=== PATIENT | female | born 1970 | race Caucasian/White ===

== ENCOUNTER 2021-09-13 08:16 | Inpatient (IN) | payer MEDICARE, MEDICAID, SELFPAY ==
[2021-09-13] VITALS (17 sets, daily range): BP systolic 104–131; BP diastolic 51–68; PULSE 2–110; RESP 11–23; TEMP 36.1–36.7; O2SAT 88–97; BMI 21.2
--- NOTE | ~2021-09-13 | MR_ITS ---
EXAMINATION: MR brain/brain stem wo/w con EXAM DATE: 09/15/2021 18:44 INDICATION: Trouble finding words, Hx CVA Aneurysms . TECHNIQUE: Magnetic resonance imaging (MRI) of the brain/brain stem obtained without contrast. Sagit ross T1, axial diffusion, gradient echo (T2*), T1, T2, FLAIR sequences obtained. Patient was then inj ected with 10 cc intravenous Multihance contrast. Axial and coronal postcontrast T1 weighted sequence s obtained. Correlation is made to head CT from 09/13/2021. FINDINGS: Evidence of small old hemorrhagic infarction in the left frontal lobe white matter extendin g to the external capsule. Mild microangiopathy. There are no areas of restricted diffusion to sugges t acute infarction. There is no acute hemorrhage seen on the T2*, a hemosiderin sensitive sequence. No intraparenchymal brain mass. The ventricles are normal in size. There are no extra-axial collect ions. Flow voids are seen in the cerebral arteries on the T2-weighted sequences consistent with thei r expected patency. The orbits are unremarkable. Soft tissue is unremarkable. There are no areas of abnormal enhancement on the postcontrast images. IMPRESSION: 1. No acute intracranial findings. 2. Small old left frontal lobe white matter/external capsular hemorrhagic lacunar infarction. Reviewed, dictated and finalized at location G. HAND CRAB BOAT IMPRESSION: 1. No acute intracranial findings. 2. Small old left frontal lobe white matter/external capsular hemorrhagic lacu valeria infarction.
--- NOTE | ~2021-09-13 | US_ITS ---
EXAMINATION: US abdomen limited EXAM DATE: 09/13/2021 16:57 INDICATION: Epigastric pain. TECHNIQUE: Multiple grayscale and Doppler images of the abdomen right upper quadrant were obtained (panda martins a technologist who performed the scan) and subsequently reviewed. There is no prior study for dipak alfonso. FINDINGS: The pancreatic head and body are normal in appearance. The pancreatic tail is not visualized. Mildl y nodular liver contour, possible cirrhosis. Some echogenic portal triads with dirty shadowing, proba esteban the pneumobilia seen on CT. There are no focal liver lesions identified. There is pulsatile and bidirectional portal venous flow, consistent with portal hypertension. No right-sided hydronephrosis . Common bile duct measures 8 mm, which is normal for postcholecystectomy status. The gallbladder vince a is unremarkable. IMPRESSION: 1. Cirrhosis and portal hypertension. 2. Pneumobilia, common finding for postcholecystectomy status. Reviewed, dictated and finalized at location G. S SECRETARY
--- NOTE | ~2021-09-13 | XR_ITS ---
EXAMINATION: XR chest 1V portable DATE: 09/13/2021 08:51 INDICATION: Shortness of breath. TECHNIQUE: A single frontal view of the chest was obtained. COMPARISON: None. FINDINGS: There is mild elevation of left hemidiaphragm. There is mild atelectasis at left lung base. No pleural effusion or pneumothorax. The heart size is normal. IMPRESSION: 1. Mild elevation of left hemidiaphragm with mild atelectasis at left lung base. Reviewed, dictated and finalized at location E. ER HAND IMPRESSION: 1. Mild elevation of left hemidiaphragm with mild atelectasis at left lung base .
--- NOTE | ~2021-09-13 | CT_ITS ---
EXAMINATION: CT brain wo [facility] EXAM DATE: 09/13/2021 17:29 INDICATION: slurred speech TECHNIQUE: Spiral CT of the head was performed without contrast. Axial, coronal and sagittal images were reviewed. The dose-length product (DLP) for this examination was 605.33 mGy-cm. The exposure w as tailored according to patient size, and iterative reconstruction (ASIR) was used as additional dos e reduction technique. There is no prior study for comparison. FINDINGS: There is small left centrum semiovale old infarction. There is no acute intraparenchymal he morrhage. No evidence of intraparenchymal brain mass lesion. No evidence of acute infarction. Ther e is no mass effect or midline shift. The ventricles are normal in size. There are no extra-axial c ollections. There are no acute calvarial fractures. The orbits are unremarkable. Soft tissue is unr emarkable. The visualized sinuses and mastoid air cells are well aerated. IMPRESSION: 1. No acute intracranial findings. 2. Small old left frontal lobe white matter infarction. Reviewed, dictated and finalized at location G. ION JOURNALIST
--- NOTE | ~2021-09-13 | XR_ITS ---
XR foot RT 2V DATE: 09/13/2021 13:01 INDICATION: Generalized foot pain TECHNIQUE: AP and lateral views COMPARISON: None FINDINGS: There is diffuse osteopenia. 2 fixation devices are noted at the neck and head of the first metatarsal bone. There is a transverse fixation device through the proximal shaft of the proximal phalanx of the first digit. There is surgical fusion of the proximal interphalangeal joints of the second through fourth digits. There is chronic flattening and deformity of the second metatarsal head and chronic irregularity at t he second metatarsophalangeal joint. No recent fracture or dislocation, periosteal reaction or bone destruction is evident. IMPRESSION: Osteopenia Postoperative changes Chronic deformity of the second metatarsal head and second metatarsophalangeal joint Reviewed, dictated and finalized at location B. COMMUNICATIONS SWITCH TECHNICIAN
--- NOTE | ~2021-09-13 | US_ITS ---
EXAMINATION: US venous doppler [facility] DATE: 09/13/2021 15:48 INDICATION: Lower limb swelling TECHNIQUE: Grayscale ultrasound images without and with compression and Doppler ultrasound images of the bilateral lower extremity veins were obtained. COMPARISON: None. FINDINGS: The visualized portions of right common femoral vein, profunda (deep) femoral vein, femoral vein, pop liteal vein, posterior tibial veins, peroneal veins, gastrocnemius vein and greater saphenous vein ou tflow are patent. The visualized portions of left common femoral vein, profunda femoral vein, femoral vein, popliteal v ein, posterior tibial veins, peroneal veins, gastrocnemius vein and greater saphenous vein outflow ar e patent. IMPRESSION: 1. No deep venous thrombosis in either lower limb. Reviewed, dictated and finalized at location A. TH AND SAFETY TECHNICIAN
--- NOTE | ~2021-09-13 | CT_ITS ---
EXAMINATION: CTA chest PE protocol DATE: 09/13/2021 10:02 INDICATION: Chest pain, shortness of breath. Positive d-dimer. TECHNIQUE: Computed tomography angiography (CTA) of the chest was performed with 100 mL Omnipaque-350 intravenous contrast timed to evaluate the pulmonary arteries. Coronal maximum intensity projection 3D-reconstructions were created by the technologist. Automated exposure control and iterative reconst ruction technique were employed. Exam dose: 157.70 mGy-cm total exam DLP. COMPARISON: 09/13/2021 portable AP chest FINDINGS: There is diagnostic contrast enhancement of the pulmonary arteries and no evidence of pulmo nary embolism. There is bibasilar atelectasis, left greater than right, with mild elevation of the left leaf of the diaphragm. Normal heart size. No pericardial or pleural effusion. No hilar or mediastinal mass lesion or lymphadenopathy. No thoracic aortic aneurysm or dissection. Moderate emphysematous changes of the lungs with scattered bullae. Prominent degenerative disc disease in the lower cervical spine. There is mild degenerative spurring of the thoracic spine. No suspicious osteolytic or osteoblastic lesions. Pneumobilia is noted, likely secondary to cholecystectomy. No adrenal mass lesions are noted. Small sliding hiatal hernia. IMPRESSION: No evidence of pulmonary embolism Mild bibasilar atelectasis, left greater than right; mild elevation of left diaphragm Emphysema Reviewed, dictated and finalized at Location A. Reviewed, dictated and finalized at location B. STED LIVING HOUSEKEEPER IMPRESSION: No evidence of pulmonary embolism Mild bibasilar atelectasis, left greater than right; mild elevation of left jackie phragm Emphysema
--- NOTE | 2021-09-13 08:27 | ECG_ITS ---
Measurements Intervals [place] Rate: 82 P: 37 NH: 137 QRS: -54 QRSD: 108 T: 76 QT: 371 QTc: 435 Interpretive Statements SINUS RHYTHM LEFT ANTERIOR FASCICULAR BLOCK VOLTAGE CRITERIA FOR LVH BASELINE ARTIFACT- II, III, AVF ABNORMAL ECG Electronically Signed On 09-13-2021 10:37:51 OCCUPATIONAL THERAPY PROGRAM DIRECTOR by Pranav Farnsworth D.O.
[2021-09-13 08:55] LABS: Basophils Percent Auto 0.2 % (0.2-1.2); Eosinophils Percent Auto 0.4 % (0-4.4); Hematocrit 36.2 % (37.0-47.0); Hemoglobin 12.4 g/dL (12.0-15.0); Immature Granulocyte Absolute 0.03 K/mm3 (0.00-0.031); Immature Granulocyte Percent A 0.3 % (0-0.5); Lymphocytes Absolute Auto 1.22 K/mm3 (0.9-3.2); Lymphocytes Percent Auto 11.5 % (18.3-44.2); Mean Corpuscular HGB Conc 34.3 g/dl (32-36); Mean Corpuscular Hemoglobin 32.9 pg (26-34); Mean Platelet Volume 10.2 fl (7.4-10.4); Monocytes Percent Auto 9.1 % (2.6-8.5); Neutrophils Absolute Auto 8.3 K/mm3 (1.3-6.7); Neutrophils Percent Auto 78.5 % (45.5-73.1); Platelet Count Result 134 k/mm3 (150-375); Red Blood Count 3.77 M/mm3 (4.2-5.4); Red Cell Distribution Width 13.6 % (11.5-14.5); White Blood Count 10.6 K/mm3 (4.5-10.0)
--- NOTE | 2021-09-13 08:59 | ED.GENADULT ---
HPI - General Adult General Chief complaint: Shortness of Breath/Dyspnea Stated complaint: SOB Time Seen by Provider: 09/13/21 08:30 Source: patient History of Present Illness HPI narrative: Patient is a 50 y/o female complaining of chest pain and SOB since yesterday. She describes her chest pain as pressure and rates it as 2/10. Her chest pain is mostly located on right lower chest area with no radiation. She has a cough with some dark phlegm. She has a history of asthma. She also had a recent stroke and she is supposed to have aneurysm surgery at [place]. Related Data Home Medications Medication Instructions Recorded Confirmed lactulose 10 g PO TID 09/13/21 09/13/21 Allergies Allergy/AdvReac Type Severity Reaction Status Date / Time propoxyphene Allergy Unknown Verified 09/13/21 10:32 [From Darvocet-N] baclofen AdvReac Muscle Verified 09/13/21 10:32 Spasms cyclobenzaprine AdvReac Muscle Verified 09/13/21 10:32 Spasms orphenadrine [From Norflex] AdvReac Muscle Verified 09/13/21 10:32 Spasms Review of Systems Constitutional: Constitutional: Denies chills, Denies fever(s), Denies headache(s) and Denies weakness Eyes: Eyes: Denies blurry vision ENT: Denies headache(s) and Denies neck pain Cardiovascular: Cardiovascular: Reports chest pain and Reports dyspnea Respiratory: Respiratory: Reports cough and Reports dyspnea Gastrointestinal: Gastrointestinal: Denies abdominal pain, Denies diarrhea, Denies nausea and Denies vomiting Genitourinary: Genitourinary: Denies hematuria and Denies dysuria Musculoskeletal: Musculoskeletal: Denies back pain and Denies neck pain Neurologic: Denies headache(s) and Denies weakness [facility] Past Medical History Medical History Cerebral aneurysm scheduled for surgery Cirrhosis COPD (chronic obstructive pulmonary disease) CVA (cerebral vascular accident) Tobacco abuse Surgical History Surgical History H/O section H/O: hysterectomy S/P ORIF (open reduction internal fixation) fracture right foot times two Family History Family History Mother History of brain shunt Cerebrovascular accident Father Acute myocardial infarction Social History Social History (Updated 09/13/21 @ 15:08 by Rossy Christianson NP) Social History: She has 2 children and is . She is disabled and her brother lives with here. She continues to smoke 1ppd. She has a significant other. She does not have a durable power malted milk mixer for healthcare. She denies any alcohol marijuana or illicit drug Code status full code Smoking packs per day: 0.75 Smoking cigarettes per day: 15.0 Years smoked: 33 Smoking pack-years: 24.75 Smoking status: Current every day smoker Tobacco type: cigarettes Alcohol intake: unknown Substance use: unknown Substance use type: unknown Spiritual care concerns: No Exam Const: General: no acute distress and well developed Orientation/consciousness: oriented to person, oriented to place, oriented to time and patient oriented x3 HENMT: Head: normocephalic Ears: external ears normal General nose exam: Normal external nose present Eyes: General: appearance normal, both eyes and all related structures Conjunctivae: conjunctivae normal Neck: Neck: normal visual inspection and full ROM Chest: Chest palpation & inspection: normal inspection of the chest and no tenderness Resp: Effort & Inspection: normal respiratory effort Auscultation: clear to auscultation bilaterally Cardio: Rate: regular rate Rhythm: regular rhythm GI: GI Palp: No abdominal tenderness and Yes Soft to palpation Skin: General skin exam: normal color and turgor normal Neuro: General: oriented to person, oriented to place, oriented to time and patient oriented x3 Cognit
[2021-09-13 09:04] LABS: Alanine Aminotransferase 42 U/L (4-35); Alkaline Phosphatase 95 U/L (38-126); Anion Gap 5 mmol/L (8-16); Aspartate Amino Transferase 66 U/L (14-36); Bilirubin,Total 1.5 mg/dL (0.2-1.3); Blood Urea Nitrogen 21 mg/dL (7-17); Calcium 8.9 mg/dL (8.4-10.2); Carbon Dioxide 27 mmol/L (22-30); Chloride 99 mmol/L (98-107); Estimated CRCL calculation 55 ml/min; Estimated Glomerular Filt Rate > 60; Glucose 111 mg/dL (65-110); Potassium 4.7 mmol/L (3.4-5.0); Sodium 131 mmol/L (137-145)
[2021-09-13 09:07] LABS: INR 1.2; Prothrombin Time 15.3 Seconds (11.1-14.7)
[2021-09-13 09:08] LABS: Partial Thromboplastin Time 34.8 SECONDS (22.3-36.8)
[2021-09-13 09:10] LABS: D Dimer 0.76 ug/mL (<0.48)
[2021-09-13 09:54] LABS: SARS-CoV-2 RNA PCR Negative
[2021-09-13 09:56] LABS: Troponin I 0.019 ng/mL (0.000-0.034)
[2021-09-13] MEDS: ALBUTEROL SULFATE NEB 2.5 MG/0.5 ML INH INHALATION ×2 (10:30→20:08)
[2021-09-13] MEDS: IPRATROPIUM BR 0.02% INH SOLN 0.5 MG/2.5 ML VIAL INHALATION ×2 (10:30→20:08)
--- NOTE | 2021-09-13 10:53 | PC.NURSE ---
Patient states her right foot hurts. nurse inquires if patient would like something for pain. Patient agrees to pain. Provider consulted. Patient states she is not interested in tylenol for pain control.
[2021-09-13] MEDS: methylPREDNISolone SOD SUCC 125 MG VIAL IV PUSH (11:03)
[2021-09-13 12:46] LABS: Troponin I 0.015 ng/mL (0.000-0.034)
--- NOTE | 2021-09-13 12:54 | PM.IMHP ---
H&P: HPI History of Present Illness Date/Time: 09/13/21 12:54 this is a 50-year-old female patient who came in with multiple complaints. She had been complaining of chest pain and shortness of breath since yesterday. She stated that 1 of her doctors did diagnose her with COPD but she has never had a pulmonary function test. The patient has also had CVA in the past according to her boyfriend Yoel. The patient was refusing to come to the hospital initially however her significant other made her come via ambulance. The patient described her chest pain as pressure that she rated 2/10. The patient is very anxious and is having slurred speech. However the significant other stated that her speech is typically slurred since she has had a CVA. The patient goes on to tell me that she has non alcoholic cirrhosis. She states that she takes lactulose daily and sees a specialist at [place]. The patient still continues to smoke a pack a cigarettes a day. She also stated that she has 2 aneurysm in in her brain and that she is scheduled for surgery next week in [place]. Chest x-ray was read as mild elevation of left hemidiaphragm with mild atelectasis the left lung base. CT of the chest was read as no evidence of pulmonary embolism. Mild bi basilar atelectasis left greater than right mild elevation of left diaphragm. Emphysema. The patient was also complaining of right foot pain and was wearing a walking boot on that foot. I x-rayed it and it was read as postoperative changes. Chronic deformity of the 2nd metatarsal head and 2nd metatarsal joint. The patient was given nebulizer treatments and Solu-Medrol. The patient was placed on observation status on the date of service 09/13/2021. Chief Complaint: Shortness of breath Review of Systems Review of Systems: All systems reviewed & are unremarkable except as noted in HPI and below Constitutional: Constitutional: Reports as per HPI and Reports no additional constitutional complaints Eyes: Eyes: Reports as per HPI and Reports no additional eye complaints ENT: Reports system reviewed and no additional complaints, except as documented and Reports Normal hearing present Cardiovascular: Cardiovascular: Reports no additional cardiovascular complaints Respiratory: Respiratory: Reports no additional respiratory complaints and Reports no additional respiratory complaints Gastrointestinal: Gastrointestinal: Reports as per HPI and Reports no additional gastrointestinal complaints Musculoskeletal: Musculoskeletal: Reports no additional musculoskeletal complaints Integumentary/Breasts: Skin/Breast: Reports system reviewed and no additional complaints, except as docu and Reports as per HPI Neurologic: Reports system reviewed and no additional complaints, except as documented, Reports as per HPI and Reports Normal hearing present Psychiatric: Psychiatric: Reports no additional psychiatric complaints and Reports as per HPI Endocrine: Endocrine: Reports no additional endocrine complaints Hematologic/Lymphatic: Hematologic/Lymphatic: Reports no additional hematologic/lymphatic complaints Allergic/Immunologic: Allergic/Immunologic: Reports no additional allergic/immunologic complaints [facility] Past Medical History Medical History (Updated 09/13/21 @ 17:55 by Rossy Christianson NP) Cerebral aneurysm scheduled for surgery Cirrhosis COPD (chronic obstructive pulmonary disease) CVA (cerebral vascular accident) Tobacco abuse Surgical History Surgical History (Updated 09/13/21 @ 17:54 by Rossy Christianson NP) H/O section H/O: hysterectomy Hx of cholecystectomy S/P ORIF (open reduction internal fixation) fracture right foot times two Family History Family History Mother History of brain shunt Cerebrovascular accident Father Acute myocardial infarction Social History Social History (Reviewed 09/13/21 @ 17:43 by Rossy Murrell
--- NOTE | 2021-09-13 14:24 | PC.NURSE ---
This patient, Rossy Frances, was admitted to Medical Room 253-01. Patient/family oriented to hospital policies and general routines including ID bracelet, bed and alarms, visiting hours, pain management, procedures, bathroom and other care routines, personal items, smoking policy, room service/diet, and visiting hours. Information on how to activate the Rapid Response Team has been discussed. Patient/Family are encouraged to report perceived risks to care and to ask questions if they do not understand what they are told or what they should do.
[2021-09-13] MEDS: LORazepam INJ (*CRX) 2 MG/ML VIAL 0.5 MG IV PUSH (15:39)
[2021-09-13 15:47] LABS: Ammonia 138 umol/L (9-30)
[2021-09-13 16:02] LABS: Troponin I < 0.012 ng/mL (0.000-0.034)
[2021-09-13] MEDS: methylPREDNISolone SOD SUCC 125 MG VIAL 60 MG IV PUSH ×2 (17:47→23:19)
[2021-09-13] MEDS: LACTULOSE 20 GM/30 ML UDC PO ×2 (17:47→23:19)
[2021-09-14] VITALS (9 sets, daily range): BP systolic 102–104; BP diastolic 46–60; PULSE 72–104; RESP 12–20; TEMP 36.1–36.4; O2SAT 93–98
[2021-09-14 04:30] LABS: Amphetamine Screen Urine Positive (Negative); Barbiturate Screen Urine Negative (Negative); Benzodiazepines Screen Urine Negative (Negative); Cannabinoid Screen Urine Negative (Negative); Cocaine Screen Urine Negative (Negative); Methadone Screen Urine Negative (Negative); Opiate Screen Urine Positive (Negative); Phencyclidine Screen Urine Negative (Negative)
[2021-09-14] MEDS: methylPREDNISolone SOD SUCC 125 MG VIAL 60 MG IV PUSH (05:35)
[2021-09-14] MEDS: LACTULOSE 20 GM/30 ML UDC PO ×3 (05:36→20:48)
[2021-09-14 05:54] LABS: Basophils Percent Auto 0.1 % (0.2-1.2); Hematocrit 32.5 % (37.0-47.0); Hemoglobin 11.4 g/dL (12.0-15.0); Immature Granulocyte Absolute 0.07 K/mm3 (0.00-0.031); Immature Granulocyte Percent A 0.6 % (0-0.5); Lymphocytes Absolute Auto 1.02 K/mm3 (0.9-3.2); Lymphocytes Percent Auto 9.4 % (18.3-44.2); Mean Corpuscular HGB Conc 35.1 g/dl (32-36); Mean Corpuscular Hemoglobin 32.9 pg (26-34); Mean Corpuscular Volume 93.9 fl (80-100); Mean Platelet Volume 10.7 fl (7.4-10.4); Monocytes Absolute Auto 0.1 K/mm3 (0.1-0.6); Monocytes Percent Auto 1.3 % (2.6-8.5); Neutrophils Absolute Auto 9.6 K/mm3 (1.3-6.7); Neutrophils Percent Auto 88.6 % (45.5-73.1); Platelet Count Result 120 k/mm3 (150-375); Red Blood Count 3.46 M/mm3 (4.2-5.4); Red Cell Distribution Width 13.2 % (11.5-14.5); White Blood Count 10.8 K/mm3 (4.5-10.0)
[2021-09-14 06:08] LABS: Lactic Acid Reflex 1.3 mmol/L (0.7-2.1)
[2021-09-14 06:09] LABS: Ammonia 27 umol/L (9-30)
[2021-09-14 06:11] LABS: CRP 0.9 mg/dL (<1.0); Lactate Dehydrogenase 527 U/L (313-618); Magnesium 2.3 mg/dL (1.6-2.3)
[2021-09-14 06:40] LABS: Thyroid Stimulating Hormone Reflex 0.521 uIU/mL (0.465-4.68)
[2021-09-14] MEDS: NICOTINE (*PBKC) 21 MG PATCH 1 PATCH TRANSDERM (08:53)
[2021-09-14] MEDS: ALBUTEROL SULFATE NEB 2.5 MG/0.5 ML INH INHALATION ×3 (09:09→21:23)
[2021-09-14] MEDS: IPRATROPIUM BR 0.02% INH SOLN 0.5 MG/2.5 ML VIAL INHALATION ×3 (09:09→21:23)
--- NOTE | 2021-09-14 09:53 | PM.IMPN ---
Progress Note: A&P Assessment and Plan (1) COPD (chronic obstructive pulmonary disease): Code(s): J44.9 - Chronic obstructive pulmonary disease, unspecified Status: Acute Assessment and Plan: Patient is a 50-year-old woman with a history of cerebral aneurysm scheduled for brain surgery in the future, liver cirrhosis on lactulose, COPD with active tobacco abuse, CVA, who presented to the emergency room with shortness of breath. Patient states she has been staying with her boyfriend in this area and she did not have her inhalers or nebulizer and began having some shortness of breath and her boyfriend brought her to the emergency room for further evaluation. Initial vitals showed blood pressure 131/61, heart rate 95, afebrile, 90% saturation on room air. Initial labs showed leukocytosis at 10,600, normal hemoglobin of 12.4, slight elevation neutrophils at 78%. Normal INR. Elevated D-dimer at 0.76. Hyponatremia at 131. Creatinine 0.9, BUN 21. Total bilirubin elevated 1.5, AST 66, ALT 42. Ammonia elevated 138. Troponin negative x3 and trending down. Positive urine drug screen for opiates and amphetamines. Negative COVID PCR. Chest x-ray showed mild elevation left hemidiaphragm with mild atelectasis at left lung base. CTA of chest was completed due to elevated D-dimer showed no PE, mild bibasilar atelectasis. Emphysema changes. Patient also been complaining of some foot pain after she had struck her foot on Saturday. Foot x-ray showed osteopenia, postop changes, chronic deformity of the 2nd metatarsal head and 2nd metatarsophalangeal joint. Venous Doppler studies were completed due to elevated D-dimer which showed no DVT. Due to elevated liver enzymes and abdominal ultrasound was completed which showed cirrhosis and portal hypertension. CT head completed showing no acute intracranial findings. Small old left frontal lobe white matter infarct. Patient was admitted to the hospital for a COPD exacerbation, started on IV steroids, DuoNeb treatments, and further monitoring her respiratory status. Patient was found to be hypoxic at 88% and was placed on 2 L via nasal cannula. This morning upon my evaluation she did not have the oxygen on and she was 93-94% on room air while talking with me and moving around in bed. She did not appear to be in any respiratory distress and lungs were otherwise clear without any wheezing. I decreased her IV Solu-Medrol from 60 mg every 6 hours to 20 mg every 6 hours. Will continue with breathing treatments every 6 hours If the patient remains off oxygen and is feeling well tomorrow without any wheezing or respiratory complaints she may be able to be discharged with an oral prednisone taper to continue taking her medications as prescribed. Continue monitoring. (2) Acute respiratory failure with hypoxia: Code(s): J96.01 - Acute respiratory failure with hypoxia Status: Acute Assessment and Plan: Patient is breathing better today at 93-94% on room air in bed while talking to me and moving around. Will wean her steroids today and if she is feeling well tomorrow with good oxygenation could possibly discharge. (3) Cirrhosis: Code(s): K74.60 - Unspecified cirrhosis of liver Status: Chronic Assessment and Plan: Patient has a history of liver cirrhosis supposed to be taking lactulose. Patient's ammonia level was 138 on arrival and it normalized after her having a few bowel movements after lactulose. Will continue her home lactulose regiment at this time. Otherwise she needs to follow-up with her liver specialist in [place]. (4) Cerebral aneurysm: Code(s): I67.1 - Cerebral aneurysm, nonruptured Status: Chronic Assessment and Plan: Patient reports history of having 2 aneurysms and surgery in the future 4. Will contin
[2021-09-14] MEDS: methylPREDNISolone SOD SUCC 40 MG VIAL 20 MG IV PUSH ×2 (11:56→18:30)
[2021-09-14] MEDS: ALBUTEROL SULFATE NEB 2.5 MG/0.5 ML INH (21:34)
[2021-09-14] MEDS: IPRATROPIUM BR 0.02% INH SOLN 0.5 MG/2.5 ML VIAL (21:34)
[2021-09-15] VITALS (11 sets, daily range): BP systolic 113–118; BP diastolic 48–63; PULSE 69–80; RESP 16–18; TEMP 36.2–36.4; O2SAT 92–100
[2021-09-15] MEDS: methylPREDNISolone SOD SUCC 40 MG VIAL 20 MG IV PUSH ×2 (00:03→06:18)
[2021-09-15] MEDS: ALBUTEROL SULFATE NEB 2.5 MG/0.5 ML INH INHALATION ×4 (02:13→20:05)
[2021-09-15] MEDS: IPRATROPIUM BR 0.02% INH SOLN 0.5 MG/2.5 ML VIAL INHALATION ×4 (02:13→20:06)
[2021-09-15] MEDS: LACTULOSE 20 GM/30 ML UDC PO ×3 (06:18→21:10)
[2021-09-15] MEDS: NICOTINE (*PBKC) 21 MG PATCH 1 PATCH TRANSDERM (08:01)
--- NOTE | 2021-09-15 10:27 | PM.IMPN ---
Progress Note: A&P Assessment and Plan (1) Dysarthria: Code(s): R47.1 - Dysarthria and anarthria Status: Acute Assessment and Plan: Patient reporting some trouble with her speech today and trouble finding the right words. She reports a history of recent stroke in having 2 aneurysms. He is also drowsy and has trouble keeping her eyes open when speaking me. Will order an MRI with contrast to better visualize her brain, rule out acute stroke and visualization of her aneurysms Talked to the nurse this afternoon who states that the patient is doing better with her speech and is no longer sedated. Believe her symptoms could also be due to sedation. Concerned she may have taken something from her purse without telling the nurse. She has not received any Ativan today. Told the nurse that if she has any more changes to her mental status that we need to consider going through her things to look for any medications that she could be taking Continue monitoring her symptoms. (2) COPD (chronic obstructive pulmonary disease): Code(s): J44.9 - Chronic obstructive pulmonary disease, unspecified Status: Acute Assessment and Plan: Patient is a 50-year-old woman with a history of cerebral aneurysm scheduled for brain surgery in the future, liver cirrhosis on lactulose, COPD with active tobacco abuse, CVA, who presented to the emergency room with shortness of breath. Patient states she has been staying with her boyfriend in this area and she did not have her inhalers or nebulizer and began having some shortness of breath and her boyfriend brought her to the emergency room for further evaluation. Initial vitals showed blood pressure 131/61, heart rate 95, afebrile, 90% saturation on room air. Initial labs showed leukocytosis at 10,600, normal hemoglobin of 12.4, slight elevation neutrophils at 78%. Normal INR. Elevated D-dimer at 0.76. Hyponatremia at 131. Creatinine 0.9, BUN 21. Total bilirubin elevated 1.5, AST 66, ALT 42. Ammonia elevated 138. Troponin negative x3 and trending down. Positive urine drug screen for opiates and amphetamines. Negative COVID PCR. Chest x-ray showed mild elevation left hemidiaphragm with mild atelectasis at left lung base. CTA of chest was completed due to elevated D-dimer showed no PE, mild bibasilar atelectasis. Emphysema changes. Patient also been complaining of some foot pain after she had struck her foot on Saturday. Foot x-ray showed osteopenia, postop changes, chronic deformity of the 2nd metatarsal head and 2nd metatarsophalangeal joint. Venous Doppler studies were completed due to elevated D-dimer which showed no DVT. Due to elevated liver enzymes and abdominal ultrasound was completed which showed cirrhosis and portal hypertension. CT head completed showing no acute intracranial findings. Small old left frontal lobe white matter infarct. Patient was admitted to the hospital for a COPD exacerbation, started on IV steroids, DuoNeb treatments, and further monitoring her respiratory status. Patient was found to be hypoxic at 88% on arrival and was placed on 2 L via nasal cannula. This morning upon my evaluation, she did not have the oxygen on and was not in any respiratory distress and lungs were otherwise clear without any wheezing. I switched IV Solu-Medrol to Prednisone 40 mg x5 days Will continue with breathing treatments every 6 hours Stable from a breathing aspect at this time. Continue monitoring. (3) Acute respiratory failure with hypoxia: Code(s): J96.01 - Acute respiratory failure with hypoxia Status: Acute Assessment and Plan: Breathing well on RA. Improved. (4) Cirrhosis: Code(s): K74.60 - Unspecified cirrhosis of liver Status: Chronic Assessment and Plan: Patient has a history of liver cir
[2021-09-16] MEDS: ALBUTEROL SULFATE NEB 2.5 MG/0.5 ML INH INHALATION ×2 (01:17→08:31)
[2021-09-16] MEDS: IPRATROPIUM BR 0.02% INH SOLN 0.5 MG/2.5 ML VIAL INHALATION ×2 (01:17→08:30)
[2021-09-16 01:19] VITALS: PULSE 81; RESP 16
[2021-09-16] MEDS: LACTULOSE 20 GM/30 ML UDC PO (05:10)
[2021-09-16 05:18] LABS: Hematocrit 34.1 % (37.0-47.0); Mean Corpuscular HGB Conc 32.3 g/dl (32-36); Mean Corpuscular Hemoglobin 32.9 pg (26-34); Mean Corpuscular Volume 102.1 fl (80-100); Mean Platelet Volume 10.5 fl (7.4-10.4); Platelet Count Result 115 k/mm3 (150-375); Red Blood Count 3.34 M/mm3 (4.2-5.4); Red Cell Distribution Width 13.8 % (11.5-14.5); White Blood Count 7.9 K/mm3 (4.5-10.0)
[2021-09-16 05:23] VITALS: BP 116/59; PULSE 79; RESP 17; TEMP 36.8; O2SAT 97
[2021-09-16 05:40] LABS: Ammonia 48 umol/L (9-30)
[2021-09-16 05:42] LABS: Alanine Aminotransferase 44 U/L (4-35); Albumin Level 2.9 g/dL (3.5-5.1); Alkaline Phosphatase 77 U/L (38-126); Anion Gap 0 mmol/L (8-16); Aspartate Amino Transferase 47 U/L (14-36); Bilirubin,Total 1.1 mg/dL (0.2-1.3); Blood Urea Nitrogen 24 mg/dL (7-17); Calcium 8.7 mg/dL (8.4-10.2); Carbon Dioxide 28 mmol/L (22-30); Chloride 106 mmol/L (98-107); Estimated CRCL calculation 81 ml/min; Estimated Glomerular Filt Rate > 60; Glucose 80 mg/dL (65-110); Sodium 134 mmol/L (137-145)
[2021-09-16] MEDS: predniSONE 20 MG TABLET 40 MG PO (07:56)
[2021-09-16] MEDS: NICOTINE (*PBKC) 21 MG PATCH 1 PATCH TRANSDERM (07:56)
[2021-09-16 08:31] VITALS: PULSE 75; RESP 16
[2021-09-16 08:39] VITALS: PULSE 72; RESP 16
[2021-09-16 08:49] VITALS: O2SAT 94
--- NOTE | 2021-09-16 09:39 | PM.DS ---
DS: Admitting Diagnosis Discharge Date 09/16/21 Admitting Diagnosis SOB DS: Discharge Diagnosis Discharge Diagnosis (1) COPD (chronic obstructive pulmonary disease): Code(s): J44.9 - Chronic obstructive pulmonary disease, unspecified Status: Acute Assessment and Plan: Patient is a 50-year-old woman with a history of cerebral aneurysm scheduled for brain surgery in the future, liver cirrhosis on lactulose, COPD with active tobacco abuse, CVA, who presented to the emergency room with shortness of breath. Patient states she has been staying with her boyfriend in this area and she did not have her inhalers or nebulizer and began having some shortness of breath and her boyfriend brought her to the emergency room for further evaluation. Initial vitals showed blood pressure 131/61, heart rate 95, afebrile, 90% saturation on room air. Initial labs showed leukocytosis at 10,600, normal hemoglobin of 12.4, slight elevation neutrophils at 78%. Normal INR. Elevated D-dimer at 0.76. Hyponatremia at 131. Creatinine 0.9, BUN 21. Total bilirubin elevated 1.5, AST 66, ALT 42. Ammonia elevated 138. Troponin negative x3 and trending down. Positive urine drug screen for opiates and amphetamines. Negative COVID PCR. Chest x-ray showed mild elevation left hemidiaphragm with mild atelectasis at left lung base. CTA of chest was completed due to elevated D-dimer showed no PE, mild bibasilar atelectasis. Emphysema changes. Patient also been complaining of some foot pain after she had struck her foot on Saturday. Foot x-ray showed osteopenia, postop changes, chronic deformity of the 2nd metatarsal head and 2nd metatarsophalangeal joint. Venous Doppler studies were completed due to elevated D-dimer which showed no DVT. Due to elevated liver enzymes and abdominal ultrasound was completed which showed cirrhosis and portal hypertension. CT head completed showing no acute intracranial findings. Small old left frontal lobe white matter infarct. Patient was admitted to the hospital for a COPD exacerbation, started on IV steroids, DuoNeb treatments, and further monitoring her respiratory status. Patient was found to be hypoxic at 88% on arrival and was placed on 2 L via nasal cannula. This morning upon my evaluation, she did not have any respiratory complaints and resting comfortably on RA. Continue Prednisone 40 mg x5 days Continue Albuterol inhaler as needed for SOB Prescribed Long acting Muscarinic antagonist- Spiriva for maintenance therapy for Emphysema. She is stable at this time for discharge to follow up with her PCP and Pulmnologist which is in [place]. Follow up instructions given, return to ER warnings given. Patient understands and agrees with the plan. All questions answered. (2) Dysarthria: Code(s): R47.1 - Dysarthria and anarthria Status: Acute Assessment and Plan: Patient reporting some trouble with her speech today and trouble finding the right words. She reports a history of recent stroke in having 2 aneurysms. He is also drowsy and has trouble keeping her eyes open when speaking me. MRI Brain with contrast showed No acute intracranial findings. Small old left frontal lobe white matter/external capsular hemorrhagic lacunar infarction. She is doing well with her speech and communication today. Will have her follow up with her Neurologist in [place]. (3) Acute respiratory failure with hypoxia: Code(s): J96.01 - Acute respiratory failure with hypoxia Status: Acute Assessment and Plan: Breathing well on RA. Improved. (4) Cirrhosis: Code(s): K74.60 - Unspecified cirrhosis of liver Status: Chronic Assessment and Plan: Patient has a history of liver cirrhosis supposed to be taking lactulose. Patient's ammonia level was 138 on
== END 2021-09-16 13:25 | disposition home or self-care (01) | DRG 190 ==
LOC: ANHED 08:52 → ANH2MED 12:26
PROVIDERS: Nurse Practitioner; Physician Assistant; Admitting Provider Family Medicine; Emergency Provider Emergency Medicine; Visit Provider Family Medicine
DX: J44.1 Chronic obstructive pulmonary disease with (acute) exacerbation (principal); J96.01 Acute respiratory failure with hypoxia; K74.60 Unspecified cirrhosis of liver; Z20.822 Contact with and (suspected) exposure to COVID-19; R47.1 Dysarthria and anarthria; I67.1 Cerebral aneurysm, nonruptured; F17.210 Nicotine dependence, cigarettes, uncomplicated; Z86.73 Personal history of transient ischemic attack (TIA), and cerebral infarction without residual deficits; Z90.49 Acquired absence of other specified parts of digestive tract
CPT/HCPCS: 36415; 70450; 70553; 71045; 71275; 73620; 76705; 80053; 80307; 82140; 82728; 83605; 83615; 83735; 84443; 84484; 85025; 85027; 85380; 85610; 85730; 86140; 93005; 93970; 94640; 94762; 96374; 96375; 96376; 99285; A9270; A9577; C9803; G0378; J2060; J2920; J2930; J7512; Q9967; U0003; U0005